=== PATIENT | male | born 1965 | race Caucasian/White ===

== ENCOUNTER 2020-02-19 07:46 | Day surgery (SDC) | payer BC ==
[2020-02-16 10:35] VITALS: BP 160/74
[2020-02-16 14:57] LABS: BASOPHILS % (AUTO) 0.6 % (0.0-5.0); EOSINOPHILS % (AUTO) 2.8 % (0.0-8.0); LYMPHOCYTES % (AUTO) 38.7 % (21.0-51.0); MEAN CORPUSCULAR HEMOGLOBIN 33.3 pg (27.0-33.0); MEAN CORPUSCULAR HGB CONC 33.3 g/dL (32.0-36.0); MEAN CORPUSCULAR VOLUME 99.8 fL (79-99); MONOCYTES % (AUTO) 9.6 % (3.0-13.0); NEUTROPHILS % (AUTO) 48.1 % (40.0-77.0); PLATELET COUNT (AUTO) 284 K/uL (130-400); RED BLOOD CELL COUNT(AUTO) 4.21 MIL/uL (4.50-6.20); RED CELL DISTRIBUTION WIDTH 12.4 % (11.0-15.5); WHITE BLOOD COUNT (AUTO) 8.6 K/uL (4.8-10.8)
[2020-02-16 15:10] LABS: CREATININE 0.7 mg/dL (0.5-1.5); POTASSIUM 3.7 mmol/L (3.5-5.1)
[~2020-02-19] VITALS: Ht 180.3 cm; Wt 97.5 kg
[2020-02-19] VITALS (15 sets, daily range): BP systolic 112–128; BP diastolic 61–75
[2020-02-19] MEDS: CEFAZOLIN SODIUM 1 GM VIAL IVP SCH ×3 (05:00→10:45)
[~2020-02-19 07:46] MED LIST: AEC81 PO; AMLO-97 PO
[2020-02-19] MEDS ORDERED: LACTATED RINGERS 1000ML 1,000 ML IV ONE (08:10)
[2020-02-19] MEDS ORDERED: GLYCOPYRROLATE 1 MG/5 ML SYRINGE ONE (10:18)
[2020-02-19] MEDS ORDERED: DEXAMETHASONE SOD PHOSPHATE 10MG/ML 1ML VIAL ONE (10:18)
[2020-02-19] MEDS ORDERED: LIDOCAINE PF 2% 5ML ABBOJECT ONE (10:18)
[2020-02-19] MEDS ORDERED: SUCCINYLCHOLINE CHLORIDE 20 MG/ML 10 ML VIAL ONE (10:18)
[2020-02-19] MEDS ORDERED: ONDANSETRON HCL 4 MG/2 ML VIAL ONE (10:18)
[2020-02-19] MEDS ORDERED: ROCURONIUM 10MG/1ML SYR 10 MG/ML ML ONE (10:19)
[2020-02-19] MEDS ORDERED: PROPOFOL 10 MG/ML 20ML VIAL IV ONE (10:19)
[2020-02-19] MEDS ORDERED: NEOSTIGMINE 5MG/5ML SYR IV ONE (10:19)
[2020-02-19] MEDS ORDERED: MIDAZOLAM HCL 1 MG/ML 2ML VIAL ONE (10:19)
[2020-02-19] MEDS ORDERED: FENTANYL CITRATE PF 50 MCG/1 ML 2ML VIAL ONE (10:19)
[2020-02-19] MEDS ORDERED: ROPIVACAINE 0.5% 5MG/ML 30ML IJ ONE (10:23)
[2020-02-19] MEDS ORDERED: MEPERIDINE-PF 25 MG/ML SYG ONE (10:31)
[2020-02-19] MEDS ORDERED: EPHEDRINE SULFATE 50 MG/ML AMPULE ONE (11:04)
[2020-02-19] MEDS ORDERED: KETOROLAC TROMETHAMINE 30MG/ML ONE (11:29)
== END 2020-02-19 13:15 | disposition home or self-care (01) ==
LOC: DAH 07:46
PROVIDERS: ATTEND Orthopaedic Surgery
DX: M75.22 Bicipital tendinitis, left shoulder (principal); M75.52 Bursitis of left shoulder; Z20.828 Contact with and (suspected) exposure to other viral communicable diseases; M75.112 Incomplete rotator cuff tear or rupture of left shoulder, not specified as traumatic; M25.812 Other specified joint disorders, left shoulder; M25.712 Osteophyte, left shoulder; M46.02 Spinal enthesopathy, cervical region; I10 Essential (primary) hypertension; E66.3 Overweight; Z98.890 Other specified postprocedural states; Z79.82 Long term (current) use of aspirin; Z79.899 Other long term (current) drug therapy; Z68.29 Body mass index [BMI] 29.0-29.9, adult
CPT/HCPCS: 29822; 29826; 36415; 64415; 76942; 80048; 85025; 93005; A4215; A4216; A4221; A4222; A4223 ×3; A4565; A4606; A4649 ×3; A4663; A6207; A6223; A6260; C9803; G0168; J0330; J0690; J1100; J1885; J2001; J2175; J2250; J2405; J2704; J2710; J2795; J3010; J3490 ×2; J7120 ×2; U0003